=== PATIENT | female | born 1980 | race Caucasian/White ===

== ENCOUNTER → 2020-02-26 18:27 | Outpatient (CLI) | payer OTHER, SELFPAY | PROVIDERS: Referring Provider Obstetrics & Gynecology; Visit Provider Obstetrics & Gynecology | DX: Z03.818 Encounter for observation for suspected exposure to other biological agents ruled out (principal) | CPT/HCPCS: 87635; C9803; U0003 ==

== ENCOUNTER 2020-03-02 19:05 | Inpatient (IN) | payer OTHER, SELFPAY ==
[2020-03-02 19:19] VITALS: BMI 25.0
[2020-03-02 19:32] VITALS: BP 133/83; PULSE 90; TEMP 36.9
[2020-03-02 20:02] LABS: Absolute Lymphocyte Count 2.05 X10^3/uL (0.83-4.51); Absolute Neutrophil Count 9.1 X10^3/uL (2.0-7.7); Basophil# 0.04 X10^3/uL; Basophil% 0.3 % (0-1); Eosinophil# 0.12 X10^3/uL; Hematocrit 40.6 % (37-47); Hemoglobin 13.8 g/dL (12.0-15.0); Lymphocyte # 2.05 X10^3/ul (4.0); Lymphocyte % 16.9 % (19-41); Mean Corpuscular Hgb 32.1 pg (27.0-32.0); Mean Corpuscular Volume 94.4 fL (81-99); Mean Platelet Vol. 11.6 fl (6.2-12.0); Monocyte# 0.75 X10^3/uL; Monocyte% 6.2 % (0-10); NRBC Flagged by Analyzer 0 % (0-5); Neutrophil # 9.06 X10^3/uL (2.7-7.7); Neutrophil % 74.8 % (47-70); Platelet Count 212 K/mm3 (150-450); RBC Distribution Width CV 12.3 % (11.6-14.6); RBC Distribution Width SD 42.3 fl (35.1-43.9); White Blood Count 12.1 K/mm3 (4.4-11.0)
[2020-03-02] MEDS: Lactated Ringers 1,000 ML 50 ML IV (20:34)
[2020-03-02] MEDS: miSOPROStol 25 MCG TABLET PO (20:39)
--- NOTE | 2020-03-02 21:00 | HP.PCM_ITS ---
- Problem List (1) AMA (advanced maternal age) multigravida 35+ Status: Acute (2) Rh negative status during Status: Acute (3) Positive GBS test Status: Acute (4) Encounter for induction of labor Status: Acute History Date of Admission: 03/02/20 Final JEFFY: 03/06/20 Final JEFFY Source: US <20 weeks Gestational age: 39 Weeks and 3 Days History of this : This is a 39 year-old, G [1], P [0], at 39 weeks 3 days gestational age. Presents for IOL for AMA. uncomplicated to date. Allergies No Known Allergies Allergy (Verified 03/02/20 19:37) Home Medications: Home Medications Clotrimazole/Betamethasone [Lotrisone] 1 applic TOPICAL BID PRN 03/02/20 Smoking Status: Former smoker Alcohol: None Number of Fetus(es): 1 NST - FHR Rate Baby A Baseline: 135 Variability:: Moderate Accelerations:: 15 x 15 Decelerations:: None FHR Category:: Category I Uterine Activity:: Irregular, mild to palpation History Past Pregnancies: Past Pregnancies Delivery Date Name GA/ Weeks Outcome Route Wt Infant Sex Labor Length Anesthesia Delivery Location Provider FOB Labs: Mom's Problem List Problem Status Onset Code AMA (advanced maternal age) multigravida 35+ Acute O09.529 Rh negative status during Acute O26.899, Z67.91 Positive GBS test Acute B95.1 Encounter for induction of labor Acute Z34.90 Mom's Labs & Results 03/02/20 03/02/20 19:45 19:45 WBC 12.1 H RBC 4.30 Hgb 13.8 Hct 40.6 MCV 94.4 MCH 32.1 H MCHC 34.0 RDW Std Deviation 42.3 RDW Coeff of Sandeep 12.3 Plt Count 212 MPV 11.6 Immature Gran % (Auto) 0.800 Neut % (Auto) 74.8 H Lymph % (Auto) 16.9 L [place] % (Auto) 6.2 Eos % (Auto) 1.0 Baso % (Auto) 0.3 Absolute Neuts (auto) 9.1 H Absolute Lymphs (auto) 2.05 Nucleated RBC % 0 Blood Type O NEGATIVE Antibody Screen NEGATIVE Course Did the patient receive Yes care? Labs Blood Type: O RH: NEGATIVE RPR/VDRL/Syphilis Nonreactive Rubella status Immune HbSAg Negative Date Done: 08/28/19 Chlamydia Negative Gonorrhea Negative HIV/AIDS Non-Reactive Group B Strep: Positive Current Obstetrical History Gestational Diabetes No Incompetent Cervix No Infertility No IUGR No Macrosomia No Hypertension/Pre-eclampsia No Placenta Previa/Abruption No PTL/PROM No Uterine anomaly No Oligohydramnios No Polyhydramnios No Multiple gestation No Past Medical History Asthma No Diabetes No Hypertension No Heart disease No Mitral valve prolapse No Neurologic/Seizure disorder/ No Migraines Kidney disease No Liver disease No Varicosities No Clotting disorders/Hx of DVT No Thyroid Dysfunction No Other medical diseases No Psychiatric disorders No Major trauma No Abnormal PAP smear Yes Sleep apnea No Mammogram in the last 2 years Yes Social History Marital Status: SINGLE Alleged father Brandyn Hx Smoking Yes Smoking Status Former smoker Expected Infant Delivery Method: Spontaneous Vaginal Review of Systems Constitutional: Denies: Chills, Fever, Weight Change HEENT: Denies: Head Aches, Sinus Congestion, Sinus Drainage Cardiovascular: Denies: Chest Pain, Palpitations Respiratory: Denies: Cough, Shortness of breath at rest, Sputum production Gastrointestinal: Denies: Abdominal Pain, Nausea, Vomiting Genitourinary: Denies: Dysuria Musculoskeletal: Denies: Joint Pain, Joint Tenderness Skin: Denies: Rash, Wounds Neurological: Denies: Numbness, Tingling, Focal weakness Psychiatric: Denies: Anxiety, Depression, Homicidal Ideations, Suicidal Ideations Hematologic/ Lymphatic: Denies: Easy Bruising, Easy Bleeding Physical Exam Vitals: Vital Signs Temp Pulse BP Pulse Ox 98.1 F 81 126/70 H 98 03/03/20 07:53 03/03/20 10:22 03/03/20 10:22 03/03/20 10:22 Presentation: Cephalic Cervix Dilation (cm): 1 - cervix posterior exam per nursing Station: -2 Effacement (%): 50 Assessment/Plan All Active Problems AMA (advanced maternal age) multigravida 35+ (Acute) Rh negative status during (Acute) Positive GBS test (Acute) Encounter for induction of labor (Acute) This is a 39 year-old, G [1], P [0], at 39 weeks 3 days gestational age. A:Induction of labor Advanced Maternal Age Category 1 FHT P: 1) Admit to labor and delivery 2) Routine labs. IV placement with IV fluids per protocol. GBS positive, antibiotic prophylaxis 3) Per cervical exam will use Cytotec 25mcg PO for cervical ripening. Patient very uncomfortable with exam and no felder at this time. 4) Epidural for pain management upon patient request 5) collaborative physician and notified of patient status.
[2020-03-02 22:51] VITALS: O2SAT 98
[2020-03-03] VITALS (46 sets, daily range): BP systolic 108–161; BP diastolic 55–93; PULSE 56–156; RESP 16; TEMP 36.4–37.7; O2SAT 91–100
[2020-03-03] MEDS: miSOPROStol 25 MCG TABLET PO ×2 (01:01→05:01)
[2020-03-03] MEDS: Lactated Ringers 500 ML 999 ML IV ×3 (03:38→15:06)
[2020-03-03] MEDS: 0.9% Normal Saline Single 100 ML IV.SOLN. INTRA-UTER (07:33)
[2020-03-03] MEDS: Oxytocin 30 units/NS 500 ml 30 UNITS/500 ML IV.SOLN IV (09:27)
[2020-03-03] MEDS: fentaNYL-bupivacaine (epidural) 100 ML BAG EPIDURAL ×2 (11:41→15:49)
--- NOTE | 2020-03-03 12:14 | PCM.PN.BLA ---
Progress Note Patient is comfortable with epidural. heart tones show normal baseline with moderate variability and accelerations. Tocometer shows contractions every 2 to 4 minutes. Attempted artificial rupture membranes, no return of fluid but membranes are definitely ruptured. IUPC placed. Patient is 4, 75% effaced, -2 station. Cervix is anterior. Titrate Pitocin as needed. Pelvis is clinically adequate to expect vaginal delivery and estimated weight is less than 4000 g clinically. STROKE Vital Signs/Narrative: Vital Signs Temp Pulse BP Pulse Ox 03/03/20 12:06 62 112/68 98 03/03/20 12:01 73 98 03/03/20 11:59 63 121/68 H 97 03/03/20 11:56 71 98 03/03/20 11:55 69 123/70 H 97 03/03/20 11:51 66 98 03/03/20 11:49 98.6 F 65 124/67 H 97 03/03/20 11:46 71 97 03/03/20 11:44 71 127/72 H 97 03/03/20 11:41 81 126/71 H 97 03/03/20 11:40 73 125/71 H 97 03/03/20 11:36 69 98 03/03/20 11:35 67 148/70 H 99 03/03/20 11:31 76 97 03/03/20 11:30 76 142/74 H 03/03/20 11:26 85 99 03/03/20 11:25 90 161/87 H 03/03/20 11:21 79 100 03/03/20 10:22 81 126/70 H 98 03/03/20 09:33 75 121/69 H
[2020-03-03] MEDS: Lactated Ringers 1,000 ML 200 ML IV (13:23)
[2020-03-03] MEDS: Oxytocin 30 units/NS 500 ml 30 UNITS/500 ML IV.SOLN 334 UNITS IV (19:16)
--- NOTE | 2020-03-03 19:31 | OP.PCM_ITS ---
Vaginal Delivery Maternal Presentation: Medically Indicated Induction Method of Induction: Pitocin, Gibson Bulb, Amniotomy Medical Reason for Induction: - - advanced maternal age Amniotic Membrane Rupture Type: Artificial Amniotic Fluid Description: Clear Final JEFFY: 03/06/20 Final JEFFY Source: US <20 weeks Gestational age: 39 Weeks and 4 Days Date of Procedure: 03/03/20 Pre-Operative Diagnosis: labor Post-Operative Diagnosis: same Surgery/ Procedure Performed: Spontaneous Vaginal Delivery Type of Anesthesia: Epidural Description of Procedure: A vigorous male was delivered HEBER over a second-degree perineal la ceration. The remainder the infant was delivered with maternal pushing and gentle traction only in less than 15 seconds. The Pitocin infusion was initiated for active management of the third stage. The cord was clamped and cut after 1 minute. The infant was attended to by the waiting nursing staff. The placenta was delivered spontaneously and intact. The cervix and vagina were intact. The second-degree perineal laceration was repaired with 3-0 Vicryl suture in a running standard fashion. Sponge and needle counts were correct. A vaginal sweep was completed by me. Delivery time: 1912 Presentation: HEBER Placental Delivery Description: Spontaneous Placenta Disposition: [facility] Cord Vessel Description: 3 Vessels Nuchal Cord Compression: With compression Cord Entanglement: None Drain: Gibson to straight drain Estimated Blood Loss: 200 A gender: Male - Piyush Episiotomy Description: None Laceration: 2nd degree - perineal Medications given after delivery: IV Pitocin Complications: None
[2020-03-03] MEDS: Ibuprofen 600 MG Tablet PO (20:56)
[2020-03-03] MEDS: 0.9% Saline Lock 10 ML Syringe IV (21:51)
--- NOTE | 2020-03-03 23:15 | NURSING ---
report given to jerry JACKSON. that rn to assume care of pt at this time.
[2020-03-04] MEDS: Acetaminophen 500 MG Tablet 1000 MG PO ×2 (02:51→10:58)
[2020-03-04 03:10] VITALS: BP 136/76; PULSE 78; RESP 18; TEMP 36.3
[2020-03-04] MEDS: Ibuprofen 600 MG Tablet PO ×3 (05:57→23:07)
[2020-03-04 07:48] VITALS: BP 112/72; PULSE 70; RESP 16; TEMP 36.2
--- NOTE | 2020-03-04 08:45 | PCM.PN.OB ---
Patient Problems: Active and Suspected Problems AMA (advanced maternal age) multigravida 35+ (Acute) Rh negative status during (Acute) Positive GBS test (Acute) Encounter for induction of labor (Acute) Subjective: Pain controlled - Physical Exam Vitals/I&O's: Vital Signs Temp Pulse Resp BP Pulse Ox 97.1 F L 70 16 112/72 99 03/04/20 07:48 03/04/20 07:48 03/04/20 07:48 03/04/20 07:48 03/03/20 21:20 Oxygen Delivery Method Room Air Weight: 160 lb Body Mass Index (BMI) 25.0 Intake and Output for Last 24 Hours 03/02/20 03/03/20 03/04/20 23:59 23:59 23:59 Intake Total 105 / 105 4024.20 / 4024.20 Output Total 700 / 700 300 / 300 Balance 105 / 105 3324.20 / 3324.20 -300 / -300 General: Alert, Oriented x3 Abdomen: Soft, Non Tender, Non-Distended - ff mid & below umb Extremities: No Calf Tenderness Neurological: Cranial nerves II-XII grossly intact Laboratory Results 03/03/20 21:25: Screen NEGATIVE, Baby's Blood Type O POSITIVE, Baby's CECILIO NEGATIVE Current Medications Acetaminophen (Acetaminophen 500 Mg Tablet) 1,000 mg PO Q8H PRN PRN PRN Reason: Pain Score 1-10/10 Last Admin: 03/04/20 02:51 Dose: 1,000 mg Documented by: Bisacodyl (Bisacodyl 10 Mg Suppository) 10 mg RECTAL UD PRN PRN Reason: If no BM Dibucaine (Dibucaine 30 Gm Tube) 1 applic TOPICAL TID PRN PRN; Protocol PRN Reason: Discomfort Hydrocortisone (Hydrocortisone 2.5% Crm) 1 applic TOPICAL TID PRN PRN; Protocol PRN Reason: Discomfort Oxytocin/Sodium Chloride () 30 units in 500 mls @ 2 mls/hr IV .Q250H [facility] Last Infusion: 03/03/20 19:13 Dose: Infused Documented by: Ibuprofen (Ibuprofen 600 Mg Tablet) 600 mg PO Q6H PRN PRN PRN Reason: Pain Score 1-10/10 Last Admin: 03/04/20 05:57 Dose: 600 mg Documented by: Methylergonovine Maleate (Methylergonovine 0.2 Mg/Ml Ampul) 0.2 mg IM X1 PRN PRN Reason: Excess bleeding/uterine atony Ondansetron HCl (Ondansetron 4 Mg/2 Ml Vial) 4 mg IV Q4H PRN PRN PRN Reason: Nausea Senna/Docusate Sodium (Senna/Docusate Sodium 1 Tablet) 1 - 2 tablet PO DAILY PRN PRN PRN Reason: Constipation Simethicone (Simethicone 80 Mg Tablet) 80 mg PO PCHS PRN PRN Reason: Indigestion/Stomach pain Sodium Chloride (0.9% Saline Lock 10 Ml Syringe) 5 - 15 ml IV UD PRN PRN Reason: SALINE FLUSH Medical Necessity - Tobacco Use Smoking Status: Former smoker Assessment/Plan All Active Problems AMA (advanced maternal age) multigravida 35+ (Acute) Rh negative status during (Acute) Positive GBS test (Acute) Encounter for induction of labor (Acute) PPD#1 Routine care
[2020-03-04 11:56] VITALS: BP 113/64; PULSE 74; RESP 16; TEMP 36.8
[2020-03-04 15:25] VITALS: BP 106/67; PULSE 67; RESP 16; TEMP 36.6
[2020-03-04 20:10] VITALS: BP 115/64; PULSE 68; RESP 16; TEMP 36.6
[2020-03-05 01:01] VITALS: BP 116/59; PULSE 59; RESP 14; TEMP 36.6
[2020-03-05] MEDS: Acetaminophen 500 MG Tablet 1000 MG PO (06:50)
[2020-03-05 07:17] VITALS: BP 119/68; PULSE 58; RESP 18; TEMP 36.6
--- NOTE | 2020-03-05 09:54 | PN.OBGYN_ITS ---
Patient Problems: Active and Suspected Problems AMA (advanced maternal age) multigravida 35+ (Acute) Rh negative status during (Acute) Positive GBS test (Acute) Encounter for induction of labor (Acute) Subjective: Doing well per patient and nursing staff. Ambulating and taking PO without difficulty. Voiding and passing flatus. Denies headache, visual changes, chest pain, shortness of breath, leg pain, or increased lochia. without difficulty. Planning d/C home today. - Physical Exam Vitals/I&O's: Vital Signs Temp Pulse Resp BP Pulse Ox 97.8 F 58 L 18 119/68 99 03/05/20 07:17 03/05/20 07:17 03/05/20 07:17 03/05/20 07:17 03/03/20 21:20 Oxygen Delivery Method Room Air Weight: 160 lb Body Mass Index (BMI) 25.0 Intake and Output for Last 24 Hours 03/03/20 03/04/20 03/05/20 23:59 23:59 23:59 Intake Total 4024.20 / 4024.20 Output Total 700 / 700 300 / 300 Balance 3324.20 / 3324.20 -300 / -300 General: Alert, Oriented x3, Cooperative HEENT: Atraumatic Neck: Trachea Midline Lungs: Clear to auscultation, Normal air movement, No rhonchi, No wheeze Cardiovascular: Regular rate, Regular Rhythm, No murmurs Abdomen: Bowel Sounds Present, Soft - Fundus firm 2 below U Extremities: No edema - Flora's negative Psych/Mental Status: Normal Affect, Appropriate Current Medications Acetaminophen (Acetaminophen 500 Mg Tablet) 1,000 mg PO Q8H PRN PRN PRN Reason: Pain Score 1-10/10 Last Admin: 03/05/20 06:50 Dose: 1,000 mg Documented by: Bisacodyl (Bisacodyl 10 Mg Suppository) 10 mg RECTAL UD PRN PRN Reason: If no BM Dibucaine (Dibucaine 30 Gm Tube) 1 applic TOPICAL TID PRN PRN; Protocol PRN Reason: Discomfort Hydrocortisone (Hydrocortisone 2.5% Crm) 1 applic TOPICAL TID PRN PRN; Protocol PRN Reason: Discomfort Oxytocin/Sodium Chloride () 30 units in 500 mls @ 2 mls/hr IV .Q250H [facility] Last Infusion: 03/03/20 19:13 Dose: Infused Documented by: Ibuprofen (Ibuprofen 600 Mg Tablet) 600 mg PO Q6H PRN PRN PRN Reason: Pain Score 1-10/10 Last Admin: 03/04/20 23:07 Dose: 600 mg Documented by: Methylergonovine Maleate (Methylergonovine 0.2 Mg/Ml Ampul) 0.2 mg IM X1 PRN PRN Reason: Excess bleeding/uterine atony Ondansetron HCl (Ondansetron 4 Mg/2 Ml Vial) 4 mg IV Q4H PRN PRN PRN Reason: Nausea Senna/Docusate Sodium (Senna/Docusate Sodium 1 Tablet) 1 - 2 tablet PO DAILY PRN PRN PRN Reason: Constipation Simethicone (Simethicone 80 Mg Tablet) 80 mg PO PCHS PRN PRN Reason: Indigestion/Stomach pain Sodium Chloride (0.9% Saline Lock 10 Ml Syringe) 5 - 15 ml IV UD PRN PRN Reason: SALINE FLUSH Medical Necessity - Tobacco Use Smoking Status: Former smoker Assessment/Plan All Active Problems AMA (advanced maternal age) multigravida 35+ (Acute) Rh negative status during (Acute) Positive GBS test (Acute) Encounter for induction of labor (Acute) A:PPD #1 P: 1) Routine and instructions 2) Planning D/C home today 3) 2 week and 6 week PP follow up
--- NOTE | 2020-03-05 09:59 | DCINST_ITS ---
Discharge Diet: No Restrictions Discharge Activity: Return to Normal Activity, May not drive while taking narcotic pain medications., May Shower, May Take a Tub Bath May resume sexual activity in: 4-6 weeks Weight Bearing Status: Full weight bearing Additional Activity Instructions:: Nothing in the vagina for 4-6 weeks. You may return to work/school in 6 weeks. Call your doctor if your incision/area has: Continuous Slow Oozing, Sudden Increased Bleeding, Increased Pain/ Swelling, Increased Redness, Foul Smelling Discharge Call your doctor if you observe: Fever of 101 or Higher, Inability to urinate, Inability to have a bowel movement, Using more than one pad per hour, Shortness of breath, Chest pain, Increased palpitations (irregular heartbeat), Calf discomfort, Uncontrolled pain Instructions: After a Vaginal Additional Instructions: If you experience any of the following, contact your healthcare provider. * Bleeding that soaks a pad every hour for 2 hours * Fever 100.4 or higher * Unrelieved incision or abdominal pain * Swelling, redness, discharge or bleeding from your incision or episiotomy site * Your incision begins to separate * Problems urinating (including inability to urinate or burning while urinating). * Visual changes * Severe headache * Flu-like symptoms * Pain or redness in one of both of your breasts * Pain, warmth, tenderness or swelling in your legs, especially the calf area * Frequent nausea and vomiting * Symptoms of depression or anxiety If you experience any of the following, call 911 or go to the nearest Emergency Room. * Chest pain * Problems breathing * Seizure activity * Partial or complete paralysis of a body part, slurred speech, weakness or d rooping of the face, or a sudden inability to walk or hold your balance Allergies/Adverse Reactions: Allergies No Known Allergies Allergy (Verified 03/02/20 19:37) Medications to take at Discharge Clotrimazole/Betamethasone [Lotrisone] 1 applic TOPICAL BID PRN 03/02/20 Ibuprofen [Motrin] 600 mg PO Q6H PRN PRN tab 03/05/20 Please Follow Up With: Patsy Purcell MD When: Call to make an appointment with your doctor in 2weeks for virtual visit and 6 weeks in office. If you had elevated Blood Pressure or 4th degree laceration you will need to be seen in 2 weeks. Primary Care Physician: MISHEL HERNANDEZ [Other] Test Results: Test results from this visit will be discussed in further detail at your follow- up appointment, if applicable.
--- NOTE | 2020-03-05 10:40 | NURSING ---
1037-pt will be discharged and taken off unit via wheel chair, is feeding infant at this time.
--- NOTE | 2020-03-05 16:44 | NURSING ---
1115-late entry pt in wheel chair and baby on car seat on moms lap and discharged off unit with sig other at her side. reviewed to follow up tomorrow in Dr Bolaños office and have bili drawn on baby. pt and sig other voice understanding.
== END 2020-03-05 11:15 | disposition home or self-care (01) | DRG 807 ==
PROVIDERS: Advanced Practice Midwife; Admitting Provider Obstetrics & Gynecology; Visit Provider Obstetrics & Gynecology
DX: O70.1 Second degree perineal laceration during delivery (principal); Z37.0 Single live birth; O99.824 Streptococcus B carrier state complicating childbirth; Z67.91 Unspecified blood type, Rh negative; Z87.891 Personal history of nicotine dependence; Z3A.39 39 weeks gestation of pregnancy
CPT/HCPCS: 59025; 59050; 85025; 85461; 86850; 86900; 86901; 90384; 99218; J7120; A4216; G0378; J2790

== ENCOUNTER → 2020-03-07 14:50 | Outpatient (CLI) | payer OTHER, SELFPAY ==
[2020-03-02 19:19] VITALS: BMI 25.0
== END ==
PROVIDERS: Referring Provider Obstetrics & Gynecology; Visit Provider Obstetrics & Gynecology
DX: R63.3 Feeding difficulties (principal)
CPT/HCPCS: 96158; 96159

== ENCOUNTER → 2020-04-07 19:30 | Outpatient (CLI) | payer OTHER, SELFPAY | PROVIDERS: Referring Provider Obstetrics & Gynecology; Visit Provider Obstetrics & Gynecology | DX: Z71.89 Other specified counseling (principal) | CPT/HCPCS: 96158; 96159 ==

== ENCOUNTER → 2020-04-15 19:48 | Outpatient (CLI) | payer OTHER, SELFPAY | PROVIDERS: Referring Provider Obstetrics & Gynecology; Visit Provider Obstetrics & Gynecology | DX: O92.79 Other disorders of lactation (principal) | CPT/HCPCS: 96158; 96159 ==

== ENCOUNTER 2020-07-10 08:33 | Outpatient (RCR) | payer OTHER, SELFPAY | END 2020-09-02 23:59 | LOC: IMMUN 08:33 | PROVIDERS: Referring Provider Family Medicine; Visit Provider Family Medicine | DX: Z23 Encounter for immunization (principal) | CPT/HCPCS: 0001A; 0002A; 91300 ==

== ENCOUNTER 2024-01-05 14:11 | Emergency (ER) | payer OTHER, SELFPAY ==
[2024-01-05 14:11] VITALS: BP 154/142; PULSE 70; RESP 18; TEMP 36.4; O2SAT 100; BMI 22.7
== END 2024-01-05 14:42 | disposition left against medical advice (07) ==
LOC: ED 14:46
DX: Z53.21 Procedure and treatment not carried out due to patient leaving prior to being seen by health care provider (principal)

== ENCOUNTER 2024-07-25 22:06 | Emergency (ER) | payer SELFPAY ==
[2024-07-25 22:07] VITALS: BP 119/91; PULSE 88; RESP 20; TEMP 36.6; O2SAT 96; BMI 21.9
[2024-07-25 22:09] VITALS: BP 119/91; PULSE 88; RESP 20; TEMP 36.6; O2SAT 96
--- NOTE | 2024-07-25 22:29 | EX.ED.VIS.UR ---
HPI HPI - URI History of Present Illness Chief Complaint: Ear Problem Informant: patient Onset/Context/Timing Onset: Today Context: Sudden Onset Timing: Continuous Quality: Sharp Location: Left ear Worsened by: - (Nothing) Relieved by: - (Nothing) Associated Symptoms Associated Symptoms: Positive for Nasal Congestion, Sinus Pressure, Diarrhea and Productive Cough (Clear); Negative for Headache, Myalgias, Nausea, Vomiting, Shortness of Breath, Chest Pain, Nonproductive cough or Hemoptysis Narrative Narrative: Patient presents with left ear pain that began today. Patient states it came on rather suddenly. Patient states it has been constant. Patient describes it as sharp. Patient states it is localized to the left ear. Patient states she had a virtual visit with her primary care physician today. Patient states she was given prescription for doxycycline. Patient states the pain is getting worse despite starting the doxycycline. Patient admits to some rhinorrhea and nasal congestion. Patient also admits to a cough with some clear sputum. ROS ROS ED Constitutional Constitutional ED: Denies chills or fever(s) Eyes Eyes: Denies blurry vision or change in vision ENT ENT ED: Reports ear pain left and rhinorrhea; Denies sore throat Cardiovascular Cardiovascular: Denies chest pain or palpitations Respiratory/Chest Respiratory/Chest: Denies cough or dyspnea Gastrointestinal Gastrointestinal: Reports diarrhea; Denies nausea or vomiting Genitourinary Genitourinary ED: Denies dysuria or hematuria Musculoskeletal Musculoskeletal: Denies back pain or neck pain Integumentary Denies abscess or rash Neurologic Neurologic: Denies headache(s) or weakness Allergic/Immunologic Allergic/Immunologic ED: Denies mouth swelling or urticaria PFSH PFSH Medical History no medical history no medical history Home Medications ?Medication ?Instructions ?Recorded ?Last Taken ?Type doxycycline hyclate 100 mg tablet 100 mg PO BID 07/25/24 Unknown History hydrocodone-acetaminophen 5-325mg 1 tab PO Q6H PRN PRN Pain 3 days 07/25/24 Unknown Rx 5mg-325mg #10 TABLETS Allergy/AdvReac Type Severity Reaction Status Date / Time amoxicillin Allergy Rash Verified 07/25/24 22:19 Family History (Updated 07/25/24 @ 22:18 by Mirna Hauser) Father Cancer Mother Autoimmune disease Surgical History no surgical history no surgical history Social History household members: spouse and children housing: house current occupational status: employed Smoking Status: Former smoker EXAM Physical Exam Const Vital Signs: 07/25/24 22:07 07/25/24 22:09 Temperature 97.9 F 97.9 F Temperature Source Temporal Temporal Pulse Rate 88 88 Respiratory Rate 20 H 20 H Blood Pressure 119/91 H 119/91 H Blood Pressure Mean 100 100 Pulse Ox 96 96 Oxygen Delivery Method Room Air Room Air Positive well nourished and well developed Constitutional Narrative: BMI is 21.9 General Appearance ED: well developed and NAD HEENT Reports moist mucous membranes HEENT Narrative: The left tympanic membrane is erythematous and bulging. The right tympanic membrane and external auditory canal are clear. normocephalic and atraumatic Throat: posterior oropharynx normal Neck supple, no meningeal signs and no JVD Neuro oriented x3, CN's II-XII intact bilaterally and no sensory deficits noted Sensorium / Orientation: alert Motor Exam: strength 5/5 throughout Psych mental status grossly normal MDM MDM MDM Narrative Medical decision making narrative: Patient was advised that she does have a left otitis media. Patient drove herself to the emergency department. Patient was given a dose of Naprosyn here. Patient was given a prescription for a short course of Fletcher. Patient was instructed to continue his doxycycline as prescribed. Patient was instructed to follow-up with her primary care physician in 5 to 7 days. Patient was instructed to return if worse in any way. Patient understood and was agreeable with the plan. All questions were answered. Discharge Plan Triage Chief Complaint: Ear Problem ED Provider: Dhiraj Anderson Dx/Rx/DC Orders Clinical Impression: Acute left otitis media, Rhinorrhea Instructions: ED Otitis Media Adult Prescriptions: New hydrocodone-acetaminophen 5-325 mg tablet 1 tab PO Q6H PRN PRN (Reason: Pain) 3 Days Qty: 10 0RF No Action doxycycline hyclate 100 mg tablet 100 mg PO BID Primary Care Provider: MISHEL HERNANDEZ Referrals: MISHEL HERNANDEZ [Other] - 5-7 Days Print Language: Yemeni Disposition Disposition: Home, Self Care
[2024-07-25] MEDS: Naproxen 500 MG Tablet PO (22:50)
== END 2024-07-25 22:53 | disposition home or self-care (01) ==
PROVIDERS: Emergency Provider Emergency Medicine; Referring Provider Emergency Medicine; Visit Provider Emergency Medicine
DX: H66.92 Otitis media, unspecified, left ear (principal); J34.89 Other specified disorders of nose and nasal sinuses; Z87.891 Personal history of nicotine dependence
CPT/HCPCS: 99282